=== PATIENT | female | born 1985 | race Two or more races ===

== ENCOUNTER → 2022-06-23 | Emergency (ER) | payer OTHER ==
[~2022-06-23] VITALS: Ht 152.4 cm; Wt 73.9 kg
[~2022-06-23] MED LIST: KEPPRA XR500 MG PO; METHYLPREDNISOLO4 M1 PO; ZYRTEC10 M3 PO
== END | disposition home or self-care (01) ==
LOC: ER 12:25
DX: R21 Rash and other nonspecific skin eruption (principal); Z88.8 Allergy status to other drugs, medicaments and biological substances; Z91.013 Allergy to seafood